=== PATIENT | male | born 1955 | race American Indian/Alaskan Native ===

== ENCOUNTER 2023-06-30 17:51 | Inpatient (IN) ==
[2023-06-30] MEDS: MAG HYDROX/AL HYDROX/SIMETH 30 ML ORAL.SUSP PO ONE (18:40)
[2023-06-30] MEDS: 0.9 % SODIUM CHLORIDE 1,000 ML IV ONE (18:40)
[2023-06-30] MEDS: DICYCLOMINE 20 MG/2 ML VIAL IM ONE (18:40)
[2023-06-30 18:48] LABS: POC Calcium, Ionized 1.23 (1.16-1.32); POC Creatinine 1.1 (0.6-1.2); POC Potassium 3.6 (3.3-5.1)
[2023-06-30 19:13] LABS: Basophils # (Auto) 0.06 K/mcL (0.00-0.30); Basophils % (Auto) 0.6 % (0.0-2.0); Eosinophils # (Auto) 0.38 K/mcL (0.00-0.70); Eosinophils % (Auto) 3.8 % (0.0-7.0); Hematocrit 50.4 % (40.1-51.0); Hemoglobin 16.8 g/dL (13.7-17.5); Lymphocytes % (Auto) 22.9 % (15.5-49.0); Mean Corpuscular HGB Conc 33.3 g/dL (31.0-36.0); Mean Platelet Volume 9.8 fL (8.8-12.5); Monocytes # (Auto) 0.86 K/mcL (0.10-0.90); Monocytes % (Auto) 8.5 % (1.0-12.0); Neutrophils % (Auto) 63.9 % (38.0-78.0); Platelet Count 178 K/mcL (140-440); Red Cell Distribution Width 14.1 % (11.5-14.5); WBC 10.1 K/mcL (4.5-11.0)
[2023-06-30 19:35] LABS: ALT/SGPT 26 U/L (<40); AST/SGOT 23 U/L (<40); Albumin 4.2 gm/dL (3.2-5.2); Alkaline Phosphatase 65 U/L (39-117); Bilirubin,Direct < 0.2 mg/dL (0-0.3); Bilirubin,Total 0.4 mg/dL (0.1-1.0); Globulin 3.2 gm/dL (2.2-3.7)
[2023-06-30] MEDS: KETOROLAC 30 MG/ML VIAL IV ONE (19:54)
[2023-06-30] MEDS: FAMOTIDINE/PF 20 MG/2 ML VIAL IV ONE (19:54)
[2023-06-30 19:59] LABS: Appearance,Urine HAZY (Clear); Bacteria,Urine FEW /hpf (0); Bilirubin,Urine Negative (Negative); Color,Urine YELLOW; Culture Indicated,Urine Yes; Glucose,Urine (UA) Negative (Negative); Ketones,Urine Negative (Negative); Leukocyte Esterase,Urine 500 /uL (Negative); Mucus,Urine FEW /hpf; Nitrate,Urine POS (Negative); Protein,Urine Negative (Negative); Specific Gravity,Urine 1.016 (1.000-1.035); Urine Blood Negative (Negative); Urine RBC 3 /hpf (0-3); Urine Squamous Epithelial Cell 0 /hpf (0-4); Urine WBC 75 /hpf (0-4); Urobilinogen,Urine Negative
[2023-06-30] MEDS: PIPERACILLIN SODIUM/TAZOBACTAM 3.375 GM in DEXTROSE 5% IN WATER 50 ML IV ONE (20:24)
[2023-06-30] MEDS ORDERED: diphenhydrAMINE 25 MG CAPSULE PO PRN (20:36)
[2023-06-30] MEDS: PIPERACILLIN SODIUM/TAZOBACTAM 3.375 GM in DEXTROSE 5% IN WATER 50 ML IV SCH (20:52)
[2023-06-30] MEDS: LACTATED RINGERS 1,000 ML IV SCH (20:56)
[2023-06-30 20:59] LABS: ALT/SGPT 26 U/L (<40); AST/SGOT 23 U/L (<40); Albumin 4.3 gm/dL (3.2-5.2); Albumin/Globulin Ratio 1.6 (1.0-2.3); Alkaline Phosphatase 65 U/L (39-117); Bilirubin,Direct < 0.2 mg/dL (0-0.3); Bilirubin,Total 0.4 mg/dL (0.1-1.0); Blood Urea Nitrogen 17 mg/dL (8-23); Calcium 9.3 mg/dL (8.6-10.4); Carbon Dioxide 26 mmol/L (22-30); Chloride 100 mmol/L (96-108); Globulin 2.7 gm/dL (2.2-3.7); Glomerular Filtration Rate 78; Glucose 130 mg/dL (70-105); Lactate Dehydrogenase 196 U/L (135-225); Phosphorous 3.5 mg/dL (2.5-4.5); Triglycerides 112 mg/dL (<150); Uric Acid 6.2 mg/dL (2.5-8.0)
[2023-06-30 21:03] LABS: Prothrombin Time 13.3 sec (11.9-14.5)
[2023-06-30] MEDS: 0.9 % SODIUM CHLORIDE 1,000 ML IV SCH (21:30)
[2023-07-01] MEDS: HYDROmorphone 1 MG/ML SYRINGE IV PRN (00:32)
[2023-07-01] MEDS: HYDROmorphone 1 MG/ML SYRINGE ONE ×2 (00:33→04:40)
[2023-07-01] MEDS: ONDANSETRON 4 MG/2 ML VIAL IV PRN (04:40)
[2023-07-01 06:10] LABS: Basophils # (Auto) 0.04 K/mcL (0.00-0.30); Basophils % (Auto) 0.3 % (0.0-2.0); Eosinophils # (Auto) 0.03 K/mcL (0.00-0.70); Eosinophils % (Auto) 0.2 % (0.0-7.0); Hematocrit 46.7 % (40.1-51.0); Hemoglobin 15.5 g/dL (13.7-17.5); Lymphocytes # (Auto) 1.25 K/mcL (1.50-4.80); Lymphocytes % (Auto) 9.4 % (15.5-49.0); Mean Cell Volume 90.5 fL (80.0-100.0); Mean Corpuscular HGB Conc 33.2 g/dL (31.0-36.0); Monocytes # (Auto) 0.85 K/mcL (0.10-0.90); Monocytes % (Auto) 6.4 % (1.0-12.0); Neutrophils % (Auto) 83.2 % (38.0-78.0); Platelet Count 153 K/mcL (140-440); RBC 5.16 M/mcL (4.63-6.08); Red Cell Distribution Width 14.2 % (11.5-14.5); WBC 13.3 K/mcL (4.5-11.0)
[2023-07-01 06:39] LABS: ALT/SGPT 23 U/L (<40); AST/SGOT 23 U/L (<40); Albumin 3.7 gm/dL (3.2-5.2); Albumin/Globulin Ratio 1.3 (1.0-2.3); Alkaline Phosphatase 56 U/L (39-117); Bilirubin,Direct 0.2 mg/dL (<0.3); Bilirubin,Total 0.6 mg/dL (0.1-1.0); Blood Urea Nitrogen 21 mg/dL (8-23); Calcium 8.5 mg/dL (8.6-10.4); Carbon Dioxide 21 mmol/L (22-30); Chloride 103 mmol/L (96-108); Globulin 2.9 gm/dL (2.2-3.7); Glomerular Filtration Rate 78; Glucose 137 mg/dL (70-105); Lactate Dehydrogenase 235 U/L (135-225); Phosphorous 3.3 mg/dL (2.5-4.5); Triglycerides 55 mg/dL (<150); Uric Acid 5.4 mg/dL (2.5-8.0)
[2023-07-01] MEDS: PANTOPRAZOLE 40 MG VIAL IV SCH (07:36)
[2023-07-01] MEDS: PIPERACILLIN SODIUM/TAZOBACTAM 3.375 GM in DEXTROSE 5% IN WATER 100 ML IV SCH (08:48)
[2023-07-01] MEDS ORDERED: fentaNYL 100 MCG/2 ML VIAL IV ONE ×2 (09:23→09:38)
[2023-07-01] MEDS ORDERED: KETAMINE 50 MG/ML Syringe IV ONE (09:24)
[2023-07-01] MEDS ORDERED: VASOPRESSIN 20 UNIT/ML VIAL ONE (10:05)
[2023-07-01] MEDS ORDERED: LIDOCAINE 2% PF 5 ML VIAL ONE (10:07)
[2023-07-01] MEDS ORDERED: DEXAMETHASONE 10 MG/ML VIAL ONE (10:07)
[2023-07-01] MEDS ORDERED: PHENYLephrine 1 MG/10 ML SYRINGE (ANEST) ONE ×2 (10:07→10:15)
[2023-07-01] MEDS ORDERED: SUGAMMADEX SODIUM 200 MG/2 ML VIAL IV ONE ×2 (10:07→10:35)
[2023-07-01] MEDS ORDERED: ONDANSETRON 4 MG/2 ML VIAL ONE (10:07)
[2023-07-01] MEDS ORDERED: ROCURONIUM 10 MG/ML ML IV ONE (10:07)
[2023-07-01] MEDS ORDERED: GLYCOPYRROLATE 0.2 MG/ML VIAL IV ONE (10:07)
[2023-07-01] MEDS ORDERED: ESMOLOL 100 MG/10 ML VIAL IV ONE ×2 (10:08→10:15)
[2023-07-01] MEDS ORDERED: PROPOFOL 200 MG/20 ML VIAL IV ONE (10:14)
[2023-07-01] MEDS ORDERED: METOCLOPRAMIDE 10 MG/2 ML VIAL IV PRN (11:06)
[2023-07-01] MEDS ORDERED: METOPROLOL TARTRATE 5 MG/5 ML VIAL IV PRN ×2 (11:06→11:58)
[2023-07-01] MEDS ORDERED: IPRATROPIUM/ALBUTEROL 3 ML AMPUL.NEB NEB PRN (11:06)
[2023-07-01 11:29] LABS: POC Calcium, Ionized 1.04 (1.16-1.32); POC Creatinine 0.9 (0.6-1.2); POC Potassium 4.3 (3.3-5.1)
[2023-07-01] MEDS: METOPROLOL TARTRATE 5 MG/5 ML VIAL IV ONE (11:55)
[2023-07-01] MEDS: METOPROLOL TARTRATE 50 MG TABLET PO SCH (12:09)
[2023-07-01 12:55] LABS: Creatine Kinase 61 U/L (24-195); Creatine Kinase MB 1.9 ng/mL (<6.7)
[2023-07-02 06:44] LABS: Basophils # (Auto) 0.02 K/mcL (0.00-0.30); Basophils % (Auto) 0.1 % (0.0-2.0); Eosinophils # (Auto) 0 K/mcL (0.00-0.70); Eosinophils % (Auto) 0 % (0.0-7.0); Hematocrit 45.2 % (40.1-51.0); Hemoglobin 15.4 g/dL (13.7-17.5); Lymphocytes # (Auto) 1.11 K/mcL (1.50-4.80); Lymphocytes % (Auto) 5.4 % (15.5-49.0); Mean Cell Volume 90.6 fL (80.0-100.0); Mean Corpuscular HGB Conc 34.1 g/dL (31.0-36.0); Mean Platelet Volume 9.6 fL (8.8-12.5); Monocytes # (Auto) 1.23 K/mcL (0.10-0.90); Neutrophils % (Auto) 87.8 % (38.0-78.0); Platelet Count 142 K/mcL (140-440); RBC 4.99 M/mcL (4.63-6.08); Red Cell Distribution Width 14.6 % (11.5-14.5); WBC 20.5 K/mcL (4.5-11.0)
[2023-07-02 07:02] LABS: ALT/SGPT 17 U/L (<40); AST/SGOT 18 U/L (<40); Albumin 3.5 gm/dL (3.2-5.2); Albumin/Globulin Ratio 1.1 (1.0-2.3); Alkaline Phosphatase 52 U/L (39-117); Bilirubin,Direct 0.3 mg/dL (<0.3); Bilirubin,Total 0.8 mg/dL (0.1-1.0); Blood Urea Nitrogen 16 mg/dL (8-23); Calcium 8.5 mg/dL (8.6-10.4); Carbon Dioxide 22 mmol/L (22-30); Chloride 100 mmol/L (96-108); Globulin 3.3 gm/dL (2.2-3.7); Glomerular Filtration Rate 78; Glucose 140 mg/dL (70-105); Lactate Dehydrogenase 221 U/L (135-225); Phosphorous 2.4 mg/dL (2.5-4.5); Triglycerides 43 mg/dL (<150); Uric Acid 3.5 mg/dL (2.5-8.0)
[2023-07-02] MEDS ORDERED: ENALAPRILAT 1.25 MG/ML VIAL IV PRN (08:09)
[2023-07-02] MEDS: METOPROLOL TARTRATE 50 MG TABLET PO ONE (11:42)
[2023-07-02] MEDS ORDERED: METOPROLOL TARTRATE 50 MG TABLET PO SCH (21:00)
[2023-07-02] MEDS ORDERED: ATORVASTATIN 20 MG TABLET PO SCH (21:00)
[2023-07-03] MEDS ORDERED: LOSARTAN 50 MG TABLET PO SCH (09:00)
== END 2023-07-02 16:00 | disposition short-term general hospital (02) | DRG 444 ==
LOC: ED 17:51 → MEDSUR 17:51 → INTOOBSV 21:22 → SUATTDRO 21:22 → MEDSUR 21:22 → ICU 07-01 11:30 → UNDODISOB 07-02 16:00
PROVIDERS: ADMIT Family Medicine Adult Medicine; ATTEND Family Medicine Adult Medicine